=== PATIENT | female | born 1950 | race Caucasian/White ===

== ENCOUNTER 2022-07-14 13:30 | Outpatient (OUT) | payer MEDICARE, SELFPAY ==
[2022-07-14 14:22] LABS: INR 2.51; Prothrombin Time 25.3 sec (9.0-11.6)
== END 2022-07-14 13:31 ==
LOC: LAB 13:31
PROVIDERS: Visit Provider Internal Medicine Cardiovascular Disease
DX: I48.20 Chronic atrial fibrillation, unspecified (principal)
CPT/HCPCS: 36415; 85610

== ENCOUNTER 2022-08-29 14:33 | Outpatient (OUT) | payer MEDICARE, SELFPAY ==
[2022-08-29 14:57] LABS: INR 2.78; Prothrombin Time 27.8 sec (9.0-11.6)
== END 2022-08-29 14:34 | disposition home or self-care (01) ==
LOC: LAB 14:33
PROVIDERS: PCP Physician Assistant; Visit Provider Internal Medicine Cardiovascular Disease
DX: I48.20 Chronic atrial fibrillation, unspecified (principal); R10.9 Unspecified abdominal pain; R53.83 Other fatigue; Z79.899 Other long term (current) drug therapy
CPT/HCPCS: 36415; 85610

== ENCOUNTER 2022-09-26 11:05 | Outpatient (OUT) | payer MEDICARE, SELFPAY ==
[2022-09-26 11:52] LABS: INR 2.43; Prothrombin Time 24.5 sec (9.0-11.6)
[2022-09-26 12:09] LABS: Alanine Aminotransferase 20 U/L (14-59); Aspartate Amino Transferase 13 U/L (15-37); BUN Creatinine Ratio 16.2; Carbon Dioxide 30.3 mmol/L (21.0-32.0); Chloride 103 mmol/L (98-107); Chol HDL Ratio 3.8; Cholesterol 127 mg/dL (<=200); Estimated GFR (African America >60 (>=60); Estimated GFR (Non-African Ame >60 (>=60); Glucose 131 mg/dL (74-106); HDL Cholesterol 33 mg/dL (40-60); Potassium 4.3 mmol/L (3.5-5.1); Sodium 140 mmol/L (136-145); Triglycerides 179 mg/dL (<=150); VLDL CHOLESTEROL 35.8 mg/dL
== END 2022-09-26 11:06 | disposition home or self-care (01) ==
LOC: LAB 11:05
PROVIDERS: PCP Physician Assistant; Visit Provider Internal Medicine Cardiovascular Disease
DX: I48.20 Chronic atrial fibrillation, unspecified (principal); R53.83 Other fatigue; Z79.899 Other long term (current) drug therapy; R10.9 Unspecified abdominal pain; E78.5 Hyperlipidemia, unspecified; I25.10 Atherosclerotic heart disease of native coronary artery without angina pectoris
CPT/HCPCS: 36415; 80048; 80061; 84450; 84460; 85610

== ENCOUNTER 2022-11-08 13:26 | Outpatient (OUT) | payer MEDICARE, SELFPAY | END 2022-11-08 13:27 | disposition home or self-care (01) | LOC: LAB 13:29 | PROVIDERS: PCP Physician Assistant; Visit Provider Internal Medicine Cardiovascular Disease | DX: I48.91 Unspecified atrial fibrillation (principal); Z79.01 Long term (current) use of anticoagulants | CPT/HCPCS: 36415; 85610 ==

== ENCOUNTER 2022-12-13 09:55 | Outpatient (OUT) | payer MEDICARE, SELFPAY ==
[2022-12-13 10:53] LABS: Creatinine Urine Random 67.87 mg/dL (20.00-300.00); Microalbum Creatinine Ratio Ur 101.6 mg/g (0.0-29.9); Microalbumin Urine Random 6.9 mg/dL (<=30.0)
[2022-12-13 13:48] LABS: Alanine Aminotransferase 25 U/L (14-59); Albumin Globulin Ratio 1.2; Albumin Level 4.1 g/dL (3.4-5.0); Alkaline Phosphatase 51 U/L (46-116); Aspartate Amino Transferase 17 U/L (15-37); BUN Creatinine Ratio 17.2; Bilirubin Total 1.2 mg/dL (0.2-1.0); Calcium 9.4 mg/dL (8.5-10.1); Carbon Dioxide 29.4 mmol/L (21.0-32.0); Chloride 102 mmol/L (98-107); Chol HDL Ratio 4.7; Cholesterol 164 mg/dL (<=200); Estimated GFR (African America >60 (>=60); Estimated GFR (Non-African Ame >60 (>=60); Globulin 3.5 g/dL; Glucose 163 mg/dL (74-106); HDL Cholesterol 35 mg/dL (40-60); Potassium 4.4 mmol/L (3.5-5.1); Sodium 138 mmol/L (136-145); Total Protein 7.6 g/dL (6.4-8.2); Triglycerides 216 mg/dL (<=150); VLDL CHOLESTEROL 43.2 mg/dL
== END 2022-12-13 09:56 | disposition home or self-care (01) ==
LOC: LAB 09:58
PROVIDERS: PCP Physician Assistant
DX: E11.65 Type 2 diabetes mellitus with hyperglycemia (principal); E53.8 Deficiency of other specified B group vitamins; E78.5 Hyperlipidemia, unspecified
CPT/HCPCS: 36415; 80053; 80061; 82043; 82570; 82607

== ENCOUNTER 2023-10-04 11:10 | Outpatient (OUT) | payer MEDICARE, SELFPAY ==
--- NOTE | 2023-10-04 11:15 | XR_ITS ---
The [address] [address] Patient Name: EDY EASTON MRN: [id number] date: 1950 Sex: F Assigned Patient Location: Current Patient Location: Accession/Order Number: [id number] Exam Date: 10/04/2023 11:21 Report Date: 10/05/2023 07:36 At the request of: BART LUTZ Procedure: XR abdomen 1V EXAMINATION: XR abdomen 1V HISTORY: Urinary Tract Infection, Urinary Incontinence COMPARISON: No relevant comparison available. FINDINGS: BOWEL GAS PATTERN: No abnormal dilation or deviation. CALCIFICATIONS: None significant. 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
--- NOTE | 2023-10-04 11:16 | US_ITS ---
The [address] [address] Patient Name: EDY EASTON MRN: [id number] date: 1950 Sex: F Assigned Patient Location: Current Patient Location: US Accession/Order Number: [id number] Exam Date: 10/04/2023 11:30 Report Date: 10/04/2023 17:39 At the request of: BART LUTZ Procedure: US renal BI US renal BI, 10/04/2023 11:30 AM EDT INDICATION: Urinary Tract Infection, Urinary Incontinence COMPARISON: X-ray of the abdomen of the same date FINDINGS: The kidneys measure 10.5 x 4.2 x 4.1 cm on the right and 10.4 x 4.8 x 4.8 cm on the left side. No hydronephrosis is noted. Prominence of the left renal pelvis which is less prominent after widening of urinary bladder. Normal vascularity of kidneys. There are multiple echogenic foci in the kidneys likely consistent with nonobstructive nephrolithiasis: Superior pole of the right kidney measuring 1.7 mm, inferior pole of the right kidney measuring 1.9 mm and inferior pole of the left kidney measuring 4.2 mm. The visualized portion of the urinary bladder is unremarkable. The prevoid residual measures 235 cc. The post void residual is 114 cc. US/US renal BI IMPRESSION: Bilateral tiny nonobstructing nephrolithiasis. Electronically authenticated by: JOHN QUEEN Date: 10/04/2023 17:39
== END 2023-10-04 11:11 | disposition home or self-care (01) ==
LOC: US 11:10
PROVIDERS: PCP Physician Assistant; Visit Provider Physician Assistant
DX: N39.0 Urinary tract infection, site not specified (principal); R39.14 Feeling of incomplete bladder emptying; R32 Unspecified urinary incontinence; N20.0 Calculus of kidney
CPT/HCPCS: 74018; 76775